=== PATIENT | male | born 1950 | race Hispanic/Latino ===

== ENCOUNTER 2023-04-26 11:48 | Emergency (ER) | payer BC, OTHER ==
[~2023-04-26 11:48] MED LIST: Iopamidol-370 76% 500 ML MDV (1 ML CHARGE) ONE
[2023-04-26 13:09] LABS: #Eosinphils 0.1 thou/uL (0.0-0.7); #Monocytes 0.6 thou/uL (0.11-0.59); #Neutrophils 8.5 thou/uL (1.40-6.50); %Basophils 0.3 % (0.0-1.0); %Eosinophils 1.2 % (0.0-10.0); %Lymphocytes 10.8 % (21.0-51.0); %Neutrophils 81.3 % (42.0-75.0); Hematocrit 37.8 % (42.0-52.0); Mean Corpuscular HGB CONC 34.4 g/dL (32.0-36.0); Mean Corpuscular Hemoglobin 31.6 pg (27.0-31.0); Mean Corpuscular Volume 91.7 fl (78.0-98.0); Mean Platelet Volume 10.4 fL (7.4-10.4); Platelet Count 215 10x3/uL (130-400); RBC Distribution Width 12.1 % (11.5-14.5); Red Blood Cell (RBC) Count 4.12 mill/uL (4.70-6.10); White Blood Cell (WBC) Count 10.4 10x3/uL (4.8-10.8)
[2023-04-26 13:33] LABS: INR-International Normal Ratio 1.1; PTT 28.8 sec (22.9-36.1); Prothrombin Time 14.2 sec (12.0-14.7)
[2023-04-26] MEDS ORDERED: Bacitracin 1 PK ONE (13:35)
[2023-04-26] MEDS ORDERED: Boostrix 0.5 ML (Tdap) VIAL (>/=7 yrs of age) ONE (13:35)
[2023-04-26] MEDS ORDERED: fentaNYL 50 mcg/mL 1 mL Vial ONE (13:35)
[2023-04-26] MEDS ORDERED: Lidocaine 1% PF 5 ML VIAL ONE (13:35)
[2023-04-26 13:38] LABS: ALT (SGPT) 20 U/L (8-55); AST (SGOT) 30 U/L (5-34); Albumin 4.2 g/dL (3.4-4.8); Alkaline Phosphatase 50 U/L (40-110); Anion Gap 14 mmol/L (10-20); BUN (Urea Nitrogen) 26 mg/dL (8.4-25.7); Bilirubin, Total 0.7 mg/dL (0.2-1.2); Calc. Creatinine Clearance 0 mL/min (70-130); Calcium 9.6 mg/dL (7.8-10.44); Carbon Dioxide 26 mmol/L (23-31); Chloride 98 mmol/L (98-107); Estimated GFR 85; Globulin 3.8 g/dL (2.4-3.5); Glucose 108 mg/dL (83-110); Lipase 17 U/L (8-78); Potassium 3.9 mmol/L (3.5-5.1); Sodium 134 mmol/L (136-145)
== END 2023-04-26 15:50 | disposition home or self-care (01) ==
LOC: ERS 11:48
DX: S00.01XA Abrasion of scalp, initial encounter (principal); M54.6 Pain in thoracic spine; W11.XXXA Fall on and from ladder, initial encounter; Z23 Encounter for immunization
CPT/HCPCS: 36415; 70450; 71260; 72125; 74177; 80053; 83690; 85025; 85610; 85730; 90471; 90715; 93005; 96374; J3010; Q9967